=== PATIENT | female | born 1940 | race Caucasian/White ===

== ENCOUNTER 2018-10-09 11:53 | Observation (INO) | payer MEDICARE ==
[2018-10-09 13:08] LABS: ABSOLUTE BASOPHILS # (AUTO) 0.1 10^3/uL (0.0-0.2); ABSOLUTE EOSINOPHILS # (AUTO) 0.1 10^3/uL (0.0-0.6); ABSOLUTE LYMPHOCYTES (AUTO) 1.7 10^3/uL (0.5-4.7); ABSOLUTE MONOCYTES (AUTO) 0.3 10^3/uL (0.1-1.4); ABSOLUTE NEUT (AUTO) 3.4 10^3/uL (1.7-8.2); BASOPHILS % (AUTO) 1.2 % (0-2); EOSINOPHILS % (AUTO) 2.1 % (0-6); HEMATOCRIT 39.9 % (36.0-47.0); HEMOGLOBIN 13.5 g/dL (12.0-15.5); LYMPHOCYTES % (AUTO) 30.1 % (13-45); MEAN CORPUSCULAR HEMOGLOBIN 30.8 pg (27.0-33.4); MEAN CORPUSCULAR VOLUME 91 fl (80-97); MONOCYTES % (AUTO) 5.4 % (3-13); PLATELET COUNT 315 10^3/uL (150-450); RED CELL DISTRIBUTION WIDTH 13.7 % (11.5-14.0); SEGMENTED NEUTROPHILS % (AUTO) 61.2 % (42-78); TOTAL CELLS COUNTED % (AUTO) 100 %; WHITE BLOOD COUNT 5.6 10^3/uL (4.0-10.5)
[2018-10-09 13:18] LABS: ALANINE AMINOTRANSFERASE 25 U/L (9-52); ALBUMIN 4.3 g/dL (3.5-5.0); ALKALINE PHOSPHATASE 96 U/L (38-126); ANION GAP 9 (5-19); ASPARTATE AMINO TRANSFERASE 24 U/L (14-36); BILIRUBIN,DIRECT 0.2 mg/dL (0.0-0.4); BILIRUBIN,TOTAL 0.5 mg/dL (0.2-1.3); BLOOD UREA NITROGEN 17 mg/dL (7-20); CALCIUM 9.3 mg/dL (8.4-10.2); CARBON DIOXIDE 27 mmol/L (22-30); CHLORIDE 104 mmol/L (98-107); GLUCOSE 94 mg/dL (75-110); POTASSIUM 4.2 mmol/L (3.6-5.0); SODIUM 139.5 mmol/L (137-145); TOTAL PROTEIN 6.9 g/dL (6.3-8.2)
--- NOTE | 2018-10-09 13:38 | ER Document Report ---
ED General - General Chief Complaint: High Blood Pressure Stated Complaint: DIZZINESS/NAUSEA Time Seen by Provider: 10/09/18 13:35 TRAVEL OUTSIDE OF THE [place] IN LAST 30 DAYS: No - HPI Notes: 78-year-old female with past medical history of hypertension to the emergency department via EMS with complaints of dizziness that began this morning and elevated blood pressure. She states that for the past week she has been fighting an upper respiratory infection with sinus congestion and chest congestion. She states that she has been taking DayQuil and NyQuil and yesterday she forgot to take her blood pressure medicine. She supposed to be taking losartan 100 mg. She states that this morning she did feel lightheaded and dizzy. She states that she attempted to take her losartan because she thought that her blood pressure was high. However, she became too dizzy and nauseated and vomited the losartan. Medics were called and they found her blood pressure to be 220 systolic. They gave her 0.2 mg of clonidine in route. Patient states that since her blood pressure has gone down from the clonidine she has been feeling less dizzy. She denies weakness in any extremity, difficulty speaking, facial droop, or any other focal neurological deficits. She states that she has never had a stroke. - Related Data Allergies/Adverse Reactions: No Known Allergies Allergy (Verified 10/09/18 12:21) Past Medical History - General Information source: Patient - Social History Smoking Status: Never Smoker Chew tobacco use (# tins/day): No Frequency of alcohol use: None Drug Abuse: None Family History: Reviewed & Not Pertinent Patient has suicidal ideation: No Patient has homicidal ideation: No - Past Medical History Cardiac Medical History: Reports: Hx Hypertension Renal/ Medical History: Denies: Hx Peritoneal Dialysis Review of Systems - Review of Systems Constitutional: denies: Chills, Fever EENT: Nose discharge, Sinus pressure, Vertigo Cardiovascular: Dizziness, Lightheaded. denies: Chest pain, Palpitations Respiratory: Cough. denies: Short of breath Gastrointestinal: Nausea. denies: Abdominal pain, Diarrhea, Vomiting, Constipation Genitourinary: No symptoms reported Musculoskeletal: No symptoms reported Skin: No symptoms reported Hematologic/Lymphatic: No symptoms reported Neurological/Psychological: denies: Confusion, Dementia, Speech impairment, Numbness, Tingling -: Yes All other systems reviewed and negative Physical Exam - Vital signs Vitals: Resp Pulse Ox 12 97 10/09/18 12:03 10/09/18 12:03 Interpretation: Hypertensive - General General appearance: Appears well, Alert - HEENT Head: Normocephalic, Atraumatic Eyes: Normal Pupils: PERRL - Respiratory Respiratory status: No respiratory distress Chest status: Nontender Breath sounds: Normal Chest palpation: Normal - Cardiovascular Rhythm: Regular Heart sounds: Normal auscultation Murmur: No - Abdominal Inspection: Normal Distension: No distension Bowel sounds: Normal Tenderness: Nontender Organomegaly: No organomegaly - Extremities General upper extremity: Normal inspection, Nontender, Normal color, Normal ROM, Normal temperature General lower extremity: Normal inspection, Nontender, Normal color, Normal ROM, Normal temperature, Normal weight bearing. No: Bernadette's sign - Neurological Neuro grossly intact: Yes Cognition: Normal Orientation: AAOx4 Camilo Coma Scale Eye Opening: Spontaneous Camilo Coma Scale Verbal: Oriented Thompson Coma Scale Motor: Obeys Commands Thompson Coma Scale Total: 15 Speech: Normal. No: Dysarthria, Expressive aphasia Cranial nerves: Normal Motor strength normal: LUE, RUE, LLE, RLE Additional motor exam normals: Equal chain splitter, Other - No leg drift. No: Pronator drift Sensory: Normal - Psychological Associated symptoms: Normal affect, Normal mood - Skin Skin Temperature: Warm Skin Moisture: Dry Skin Color: Normal Course - Vital Signs Vital signs: Temp Pulse Resp BP Pulse Ox 97.9 F 14 153/74 H 97 10/09/18 12:21 10/09/18 16:31 10/09/18 16:31 10/09/18 16:31 - Laboratory Result Diagrams: 10/09/18 12:32 10/09/18 12:32 Laboratory results interpreted by me: 10/09/18 13:16 Urine Ketones TRACE H - EKG Interpretation by Ri EKG shows normal: Sinus rhythm Rate: Normal Voltage: Consistant with LVH When compared to previous EKG there are: Previous EKG unavailable - NO STEMI - Transfer of Care Notes: 10/09/18 while awaiting for patient to ambulate in the emergency department and results of urinalysis, patient's blood pressure began to elevate again. Blood pressure reached 208 systolic and she became acutely dizzy once more. She also became nauseated. Rounded on patient and we decided to give her her normal dose of blood pressure medicine losartan 100 mg and to treat her dizziness and nausea with Zofran and Phenergan. Also gave the patient a bolus of 1000 mL of normal saline. Will monitor closely. She has no focal neuro deficits despite her dizziness. She has no dysarthria. No focal extremity weakness. Suspect that the clonidine has worn off and now patient has rebound elevated blood pressure. Rounded on patient: Patient is feeling better after Phenergan, fluids, losartan. Her blood pressure is better controlled now 139 systolic. She would like to try to ambulate. If she does well will discharge home with close outpatient follow-up. 10/09/18 20:31: Patient did not tolerate ambulation well. She became acutely dizzy walking only a few feet and needed assistance. She typically walks on her own without difficulty. Updated Dr. Hi ER attending she agrees with plan to discuss with hospitalist for observation admission. Spoke with Dr. Camilo, hospitalist, we discussed patient's course today in the emergency department and the treatment plan performed here in the emergency department. We have discussed failed ambulation testing and her persistent dizziness. Requested that patient be admitted to [facility] for further monitoring and to ensure that she does well. Dr. Camilo accepts patient to his service. Impression; Accelerated HTN, dizziness, nausea. Patient to be admitted to [facility] status for further monitoring and treatment. Rounded with family and patient and they agree with the plan. they consent to admission. Discharge - Discharge Clinical Impression: Dizziness, Accelerated essential hypertension, Nausea Condition: Good Disposition: ADMITTED OBSERVATION Admitting Provider: Ton (Hospitalist) Unit Admitted: Medical Floor Additional Instructions:
--- NOTE | 2018-10-09 14:23 | RADIOLOGY REPORT (SQ) ---
EXAM DESCRIPTION: CT HEAD WITHOUT COMPLETED DATE/TIME: 10/09/2018 2:04 pm REASON FOR STUDY: dizziness, elevated BP COMPARISON: None. TECHNIQUE: Axial images acquired through the brain without intravenous contrast. Images reviewed wi th bone, brain and subdural windows. Additional sagittal and coronal reconstructions were generated. Images stored on PACS. All CT scanners at this facility use dose modulation, iterative reconstruction, and/or weight based d osing when appropriate to reduce radiation dose to as low as reasonably achievable (ALARA). [facility]: Dose Right [facility]: CareDose [facility]: Dose Right [facility]: Teradose 4D [facility]: JourneyPure RADIATION DOSE: CT Rad equipment meets quality standard of care and radiation dose reduction techniq ues were employed. CTDIvol: 53.2 mGy. DLP: 937 mGy-cm. mGy. LIMITATIONS: None. FINDINGS: VENTRICLES: Normal size and contour. CEREBRUM: No masses. No hemorrhage. No midline shift. No evidence for acute infarction. Normal gra y/white matter differentiation. No areas of low density in the white matter. CEREBELLUM: No masses. No hemorrhage. No alteration of density. No evidence for acute infarction. EXTRAAXIAL SPACES: No fluid collections. No masses. ORBITS AND GLOBE: No intra- or extraconal masses. Normal contour of globe without masses. CALVARIUM: No fracture. PARANASAL SINUSES: No fluid. Mucosal nodule in the floor of the right maxillary sinus. SOFT TISSUES: No mass or hematoma. OTHER: No other significant finding. IMPRESSION: NORMAL BRAIN CT WITHOUT CONTRAST. EVIDENCE OF ACUTE STROKE: NO. COMMENT: Quality ID # [id number]: Final reports with documentation of one or more dose reduction techniques (e.g., Automated exposure control, adjustment of the mA and/or kV according to patient size, use of iterative reconstruction technique) TECHNICAL DOCUMENTATION: JOB ID: [id number] [email or web address]- All Rights Reserved Reading location - IP/workstation name: [email or web address]
--- NOTE | 2018-10-09 14:24 | RADIOLOGY REPORT (SQ) ---
EXAM DESCRIPTION: CHEST 2 VIEWS COMPLETED DATE/TIME: 10/09/2018 1:59 pm REASON FOR STUDY: productive cough for two weeks COMPARISON: None. EXAM PARAMETERS: NUMBER OF VIEWS: two views TECHNIQUE: Digital Frontal and Lateral radiographic views of the chest acquired. RADIATION DOSE: NA LIMITATIONS: none FINDINGS: LUNGS AND PLEURA: No opacities, masses or pneumothorax. No pleural effusion. MEDIASTINUM AND HILAR STRUCTURES: No masses or contour abnormalities. HEART AND VASCULAR STRUCTURES: Heart normal size. No evidence for failure. BONES: No acute findings. HARDWARE: None in the chest. OTHER: No other significant finding. IMPRESSION: NO ACUTE RADIOGRAPHIC FINDING IN THE CHEST. TECHNICAL DOCUMENTATION: JOB ID: [id number] [email or web address]- All Rights Reserved Reading location - IP/workstation name: [email or web address]
[2018-10-09 15:44] LABS: APPEARANCE,URINE CLEAR; BILIRUBIN,URINE NEGATIVE (NEGATIVE); COLOR,URINE STRAW; GLUCOSE, URINE NEGATIVE (NEGATIVE); KETONES,URINE TRACE mg/dL (NEGATIVE); LEUKOCYTE ESTERASE,URINE NEGATIVE (NEGATIVE); NITRITE,URINE NEGATIVE (NEGATIVE); PROTEIN,URINE NEGATIVE (NEGATIVE); UROBILINOGEN,URINE NEGATIVE mg/dL (<2.0)
--- NOTE | 2018-10-09 16:29 | ER Document Report ---
ED General - General Chief Complaint: High Blood Pressure Stated Complaint: DIZZINESS/NAUSEA Time Seen by Provider: 10/09/18 13:35 Primary Care Provider: GALO CHOWDARY PA [Primary Care Provider] - Follow up as needed TRAVEL OUTSIDE OF THE [place] IN LAST 30 DAYS: No - Related Data Allergies/Adverse Reactions: No Known Allergies Allergy (Verified 10/09/18 12:21) Past Medical History - Social History Smoking Status: Never Smoker Chew tobacco use (# tins/day): No Frequency of alcohol use: None Drug Abuse: None Patient has suicidal ideation: No Patient has homicidal ideation: No - Past Medical History Cardiac Medical History: Reports: Hx Hypertension Renal/ Medical History: Denies: Hx Peritoneal Dialysis Physical Exam - Vital signs Vitals: Resp Pulse Ox 12 97 10/09/18 12:03 10/09/18 12:03 Course - Vital Signs Vital signs: Temp Pulse Resp BP Pulse Ox 97.9 F 13 120/72 97 10/09/18 12:21 10/09/18 14:46 10/09/18 14:46 10/09/18 14:46 - Laboratory Result Diagrams: 10/09/18 12:32 10/09/18 12:32 Laboratory results interpreted by me: 10/09/18 13:16 Urine Ketones TRACE H Discharge - Discharge Referrals: GALO CHOWDARY PA [Primary Care Provider] - Follow up as needed
[2018-10-09] MEDS ORDERED: LOSARTAN POTASSIUM 50 MG TABLET PO ONE (16:55)
[2018-10-09] MEDS ORDERED: ONDANSETRON HCL INJ/PF 4 MG/2 ML SDV IV ONE ×2 (16:56→17:52)
[2018-10-09] MEDS ORDERED: NORMAL SALINE 1000 ML 500 ML IV ONE (16:56)
[2018-10-09] MEDS ORDERED: NORMAL SALINE 1000 ML 1,000 ML IV PRN (17:17)
[2018-10-09] MEDS ORDERED: PROMETHAZINE HCL INJ 50 MG/1 ML VIAL IM ONE (17:55)
[2018-10-09] MEDS ORDERED: ACETAMINOPHEN 325 MG TABLET PO ONE (18:16)
[2018-10-09] MEDS ORDERED: PROMETHAZINE HCL INJ 25 MG/1 ML VIAL IM ONE (18:30)
[2018-10-09] MEDS ORDERED: MAG HYDROX/AL HYDROX/SIMETH SUSP 30 ML UDCUP PO PRN (21:52)
[2018-10-09] MEDS ORDERED: ZOLPIDEM TARTRATE 5 MG TABLET PO PRN (21:52)
[2018-10-09] MEDS ORDERED: ONDANSETRON 4 MG TAB.RAPDIS PO PRN (21:52)
[2018-10-09] MEDS ORDERED: ONDANSETRON HCL INJ/PF 4 MG/2 ML SDV IV PRN (21:52)
[2018-10-09] MEDS ORDERED: GUAIFENESIN SYRP 200 MG/10 ML UDC PO PRN (21:56)
[2018-10-09] MEDS ORDERED: ACETAMINOPHEN 325 MG TABLET PO PRN (21:57)
[2018-10-09] MEDS ORDERED: HYDRALAZINE HCL INJ/PF 20 MG/1 ML SDV IV PRN (21:57)
--- NOTE | 2018-10-09 22:12 | EKG REPORT ---
SEVERITY:- ABNORMAL ECG - SINUS RHYTHM LEFT VENTRICULAR HYPERTROPHY : Confirmed by: Marlon Yepez 09-Oct-2018 22:12:08
[2018-10-09] MEDS ORDERED: SCOPOLAMINE HYDROBROMIDE 1.5 MG PATCH.TD72 TD ONE (22:30)
[2018-10-09 22:51] LABS: ALANINE AMINOTRANSFERASE 24 U/L (9-52); ALBUMIN 3.8 g/dL (3.5-5.0); ALKALINE PHOSPHATASE 83 U/L (38-126); ANION GAP 6 (5-19); ASPARTATE AMINO TRANSFERASE 26 U/L (14-36); BILIRUBIN,DIRECT 0.2 mg/dL (0.0-0.4); BILIRUBIN,TOTAL 0.5 mg/dL (0.2-1.3); BLOOD UREA NITROGEN 13 mg/dL (7-20); CALCIUM 8.8 mg/dL (8.4-10.2); CARBON DIOXIDE 27 mmol/L (22-30); CHLORIDE 105 mmol/L (98-107); GLUCOSE 121 mg/dL (75-110); SODIUM 137.7 mmol/L (137-145); TOTAL PROTEIN 6.5 g/dL (6.3-8.2)
[2018-10-09] MEDS: FAMOTIDINE 20 MG TABLET PO SCH (23:02)
[2018-10-09] MEDS: HEPARIN SOD (PORCINE) 5,000 UNIT/ML 1 ML SYRINGE SUBCUT SCH (23:02)
[2018-10-09 23:08] LABS: FREE T3 3.11 pg/mL (2.77-5.27); FREE T4 (FREE THYROXINE) 0.98 ng/dL (0.78-2.19)
[2018-10-09] MEDS ORDERED: SCOPOLAMINE HYDROBROMIDE 1.5 MG PATCH.TD72 ONE (23:18)
--- NOTE | 2018-10-10 04:17 | ADVANCED CARE ---
- Diagnosis (1) Accelerated essential hypertension Diagnosis Current: Yes (2) Dizziness Diagnosis Current: Yes (3) Nausea Diagnosis Current: Yes (4) Medical non-compliance Diagnosis Current: Yes Attendance: Patient and myself Resuscitation Status: Full Code Discussion: Patient has chosen to maintain a full code resuscitation status throughout this hospital course for any cardiac or respiratory arrest. Additionally she desires to name Helga Almonte as her designated surrogate medical decision maker. At the present time she is not interested in discussing a living will, but consideration of same is encouraged. Care Planning Goals: 1. Patient will remain as a full code for her CODE STATUS during this admission. 2. The patient's daughter Helga Almonte will be designated as her surrogate medical decision maker. Document(s) Completed: The following entries will be made into the patient's permanent medical record and medical orders via EMR entry: 1. Patient will remain as a full code for her CODE STATUS during this admission. 2. The patient's daughter Helga Almonte will be designated as her surrogate medical decision maker. Time Spent: 11 minutes
--- NOTE | 2018-10-10 04:18 | PDOC H&P ---
History of Present Illness Admission Date/PCP: 10/09/18 20:43 DYLAN SWEENEY Patient complains of: Dizziness History of Present Illness: MEL ZAZUETA is a 78 year old female who presented to the emergency room with an acute history of dizziness beginning on the morning of admission. Her di zziness was accompanied by lightheadedness with nausea and an episode of vomiting. She also noted her dizziness was associated with an elevated blood pressure. She admits that she had not taken her blood pressure medication (losartan 100 mg) yesterday and tried to take it this morning but vomited shortly after ingesting the pill. She also reports recent use of DayQuil and NyQuil though she has been informed that they are not appropriate to use for persons who have hypertension. She denies prior similar episodes and has not identified any additional aggravating or ameliorating factors for her dizziness. When EMS arrived at her home she was found to have a systolic blood pressure of 220 which was treated with 0.2 mg of clonidine. In the emergency room she was found to have continued hypertension but it gradually resolved with resolution of her dizziness. A CT scan of her head was negative and she had no neurologic deficits on exam. Her blood pressure then rebounded several hours later and she was treated with losartan 100 mg orally and her dizziness improved but she did not feel stable enough to stand up and walk and was subsequently admitted to observation status for further evaluation. Past Medical History Cardiac Medical History: Reports: Hypertension Denies: Atrial Fibrillation, Congestive Heart Failure, Coronary Artery Disease, DVT, Myocardial Infarction, Hyperlipidema, Pulmonary Embolism Pulmonary Medical History: Denies: Asthma, Chronic Obstructive Pulmonary Disease (COPD) EENT Medical History: Denies: Cataracts, Ears - Hearing aids Neurological Medical History: Denies: Hemorrhagic CVA, Ischemic CVA, Multiple Sclerosis, Seizures Endocrine Medical History: Denies: Diabetes Mellitus Type 1, Diabetes Mellitus Type 2, Hyperthyroidism, Hypothyroidism Renal/ Medical History: Denies: Chronic Kidney Disease, Nephrolithiasis Malignancy Medical History: Reports: None GI Medical History: Denies: Cirrhosis, Crohn's Disease, Hepatitis, Peptic Ulcer Disease, Ulcerative Colitis Musculoskeltal Medical History: Denies: Arthritis, Gout Skin Medical History: Denies: Eczema, Psoriasis Psychiatric Medical History: Denies: Alcohol Dependency, Substance Abuse, Tobacco Dependency Traumatic Medical History: Reports: None Hematology: Denies: Anemia, Bleeding Tendencies Infectious Medical History: Reports: None Social History Information Source: Patient Lives with: Alone Smoking Status: Never Smoker Frequency of Alcohol Use: None Hx Recreational Drug Use: No Drugs: None Hx Prescription Drug Abuse: No - Advance Directive Resuscitation Status: Full Code Surrogate healthcare decision maker:: Helga Almonte Family History Family History: Hypertension. denies: CAD, DM, Malignancy Parental Family History Reviewed: Yes Children Family History Reviewed: No Sibling(s) Family History Reviewed.: Yes Medication/Allergy Home Medications: Hydrochlorothiazide [Hydrodiuril 12.5 mg Tablet] 12.5 mg PO DAILY 10/09/18 Losartan Potassium [Cozaar 100 mg Tablet] 100 mg PO DAILY 10/09/18 Allergies/Adverse Reactions: No Known Allergies Allergy (Verified 10/09/18 12:21) Review of Systems Constitutional: ABSENT: chills, fever(s) Eyes: ABSENT: visual disturbances, other - Eye pain Ears: ABSENT: hearing changes, other - Ear pain Nose, Mouth, and Throat: ABSENT: mouth pain, sore throat Cardiovascular: ABSENT: chest pain, palpitations Respiratory: ABSENT: cough, dyspnea Gastrointestinal: PRESENT: as per HPI, nausea, vomiting. ABSENT: abdominal pain, constipation, diarrhea Genitourinary: ABSENT: dysuria, hematuria Musculoskeletal: ABSENT: back pain, joint swelling, muscle weakness Integumentary: ABSENT: pruritus, rash Neurological: PRESENT: as per HPI, dizziness, other - Lightheadedness. ABSENT: confusion, convulsions, focal weakness, memory loss, syncope Psychiatric: ABSENT: anxiety, depression Endocrine: ABSENT: cold intolerance, heat intolerance Hematologic/Lymphatic: ABSENT: easy bleeding, easy bruising Physical Exam Vital Signs: Temp Pulse Resp BP Pulse Ox 97.9 F 14 153/74 H 97 10/09/18 12:21 10/09/18 16:31 10/09/18 16:31 10/09/18 16:31 Intake & Output 10/07/18 10/08/18 10/09/18 23:59 23:59 23:59 Weight 56.9 kg General appearance: PRESENT: no acute distress, cooperative Head exam: PRESENT: atraumatic, normocephalic Eye exam: ABSENT: conjunctival injection, scleral icterus Ear exam: PRESENT: normal external ear exam. ABSENT: bleeding, drainage Mouth exam: PRESENT: dry mucosa, neck supple Neck exam: ABSENT: JVD, thyromegaly, tracheal deviation Respiratory exam: PRESENT: clear to auscultation rony, symmetrical, unlabored Cardiovascular exam: PRESENT: RRR. ABSENT: clicks, gallop, rubs Pulses: PRESENT: normal radial pulses, normal dorsalis pedis pul Vascular exam: PRESENT: normal capillary refill. ABSENT: pallor GI/Abdominal exam: PRESENT: normal bowel sounds, soft Rectal exam: PRESENT: deferred Extremities exam: ABSENT: joint swelling, pedal edema Musculoskeletal exam: PRESENT: full ROM, normal inspection Neurological exam: PRESENT: alert, oriented to person, oriented to place, oriented to time, oriented to situation, CN II-XII grossly intact. ABSENT: ashwini r sensory deficit Psychiatric exam: PRESENT: appropriate affect, normal mood Skin exam: PRESENT: dry, intact, warm. ABSENT: jaundice, rash, urticaria Results Laboratory Results: 10/09/18 12:32 10/09/18 12:32 10/09/18 10/09/18 10/09/18 12:32 12:32 13:16 WBC 5.6 RBC 4.40 Hgb 13.5 Hct 39.9 MCV 91 MCH 30.8 MCHC 34.0 RDW 13.7 Plt Count 315 Seg Neutrophils % 61.2 Lymphocytes % 30.1 Monocytes % 5.4 Eosinophils % 2.1 Basophils % 1.2 Absolute Neutrophils 3.4 Absolute Lymphocytes 1.7 Absolute Monocytes 0.3 Absolute Eosinophils 0.1 Absolute Basophils 0.1 Sodium 139.5 Potassium 4.2 Chloride 104 Carbon Dioxide 27 Anion Gap 9 BUN 17 Creatinine 0.67 Est GFR ( Amer) > 60 Est GFR (Non-Af Amer) > 60 Glucose 94 Calcium 9.3 Total Bilirubin 0.5 AST 24 ALT 25 Alkaline Phosphatase 96 Total Protein 6.9 Albumin 4.3 Urine Color STRAW Urine Appearance CLEAR Urine pH 8.0 Ur Specific [place] 1.010 Urine Protein NEGATIVE Urine Glucose (UA) NEGATIVE Urine Ketones TRACE H Urine Blood NEGATIVE Urine Nitrite NEGATIVE Ur Leukocyte Esterase NEGATIVE Urine WBC (Auto) 0 Urine RBC (Auto) 0 10/09/18 12:32 Troponin I < 0.012 Impressions: Head CT 10/09/18 13:37 IMPRESSION: NORMAL BRAIN CT WITHOUT CONTRAST. EVIDENCE OF ACUTE STROKE: NO. Chest X-Ray 10/09/18 13:45 IMPRESSION: NO ACUTE RADIOGRAPHIC FINDING IN THE CHEST. Assessment and Plan - Diagnosis (1) Accelerated essential hypertension Is this a current diagnosis for this admission?: Yes Plan: Patient be restarted on her usual antihypertensive medication and her blood pressure will be monitored throughout the remainder of her observation. A thyroid profile and a lipid profile will also be obtained as well as a morning CBC and magnesium level and comprehensive metabolic profile, these tests are essential as part of her evaluation. (2) Dizziness Is this a current diagnosis for this admission?: Yes Plan: Patient's dizziness will be treated with a Transderm scopolamine patch and she will be observed for her ability to resume normal activities. (3) Nausea Is this a current diagnosis for this admission?: Yes Plan: Patient's nausea will be controlled with utilization of Transderm scopolamine patch to control dizziness as well as supplemental Zofran given intravenously or sublingually as required. (4) Medical non-compliance Is this a current diagnosis for this admission?: Yes Plan: Patient has been informed about taking medications that contains pseudoephedrine or other stimulant type agents such as NyQuil and DayQuil. She vows not to repeat this mistake in the future. Additionally she understands the necessity to take her medication on a daily basis and again vows not to repeat this mistake in the future. (5) LVH (left ventricular hypertrophy) Is this a current diagnosis for this admission?: Yes Plan: Patient will be continued on her current antihypertensive regiment as it would also provide initial treatment for her left ventricular hypertrophy. Further evaluation of this problem (echocardiogram/cardiology consultation) may be considered on an outpatient basis by her primary care provider. - Time Time Spent with patient: 25-34 minutes Medications reviewed and adjusted accordingly: Yes Anticipated discharge: Home - Inpatient Certification Based on my medical assessment, after consideration of the patient's comorbidities, presenting symptoms, or acuity I expect that the services needed warrant INPATIENT care.: No I certify that my determination is in accordance with my understanding of Medicare's requirements for reasonable and necessary INPATIENT services [42 CFR 412.3e].: No Medical Necessity: Need Close Monitoring Due to Risk of Patient Decompensation, Risk of Complication if Not Cared For in Hospital
[2018-10-10] MEDS: HEPARIN SOD (PORCINE) 5,000 UNIT/ML 1 ML SYRINGE SUBCUT SCH (05:39)
[2018-10-10 05:56] LABS: HEMOGLOBIN 12.3 g/dL (12.0-15.5); MEAN CORPUSCULAR HEMOGLOBIN 30.8 pg (27.0-33.4); MEAN CORPUSCULAR HGB CONC 34.1 g/dL (32.0-36.0); MEAN CORPUSCULAR VOLUME 90 fl (80-97); PLATELET COUNT 270 10^3/uL (150-450); RED BLOOD COUNT 3.98 10^6/uL (3.72-5.28); RED CELL DISTRIBUTION WIDTH 13.8 % (11.5-14.0); WHITE BLOOD COUNT 6.8 10^3/uL (4.0-10.5)
[2018-10-10 06:19] LABS: CHOLESTEROL 192.09 mg/dL (0-200); TRIGLYCERIDES 198 mg/dL (<150)
[2018-10-10 06:30] LABS: DIRECT LDL 92 mg/dL (<100)
[2018-10-10 06:31] LABS: VLDL CHOLESTEROL 39.6 mg/dL (10-31)
--- NOTE | 2018-10-10 08:47 | PDOC DISCHARGE SUMMARY ---
General - Admit/Disc Date/PCP Admission Date/Primary Care Provider: 10/09/18 20:43 DYLAN SWEENEY Discharge Date: 10/10/18 - Discharge Diagnosis (1) Accelerated essential hypertension Is this a current diagnosis for this admission?: Yes Summary: The patient's blood pressure spiked after taking decongestants. This morning her blood pressures are much improved. She will return to her normal regimen of losartan 100 mg daily with hydrochlorothiazide 12.5 mg daily. Follow-up with primary care next week. (2) Dizziness Is this a current diagnosis for this admission?: Yes Summary: Likely due to the acute hypertensive episode. Scopolamine patch was applied. Will discontinue scopolamine. (3) Nausea Is this a current diagnosis for this admission?: Yes Summary: As noted above, Scopolamine was used as Zofran was not effective. Discontinue scopolamine patch. - Additional Information Resuscitation Status: Full Code Discharge Diet: Cardiac Discharge Activity: Activity As Tolerated Home Medications: Hydrochlorothiazide [Hydrodiuril 12.5 mg Tablet] 12.5 mg PO DAILY 10/09/18 Losartan Potassium [Cozaar 100 mg Tablet] 100 mg PO DAILY 10/09/18 History of Present Illness Patient complains of: Dizziness and elevated blood pressure History of Present Illness: MEL ZAZUETA is a 78 year old female with a history of hypertension. She has had sinus congestion for the last week or so. She was coughing to the point where her ribs hurt. To get relief she tried NyQuil and decongestants. This caused her blood pressure to accelerate. She was 230/108 in the emergency department. She was referred to the hospital service for admission. Hospital Course Hospital Course: Patient had a benign hospital course. With no more decongestants her blood pressure has settled down nicely. Upon discharge she will resume her regimen of losartan 100 mg and hydrochlorthiazide 12.5 mg. Her nausea is resolved and therefore she will discontinue the scopolamine patch. Physical Exam Vital Signs: Temp Pulse Resp BP Pulse Ox 97.5 F 52 L 12 150/68 H 52 L 10/09/18 22:57 10/09/18 22:57 10/09/18 22:57 10/09/18 22:57 10/09/18 22:57 Intake & Output 10/09/18 10/10/1819 06:59 06:59 06:59 Intake Total 1320 Output Total 500 Balance 820 Weight 41.8 kg General appearance: PRESENT: no acute distress, cooperative, well-developed Head exam: PRESENT: atraumatic, normocephalic Ear exam: PRESENT: normal external ear exam Mouth exam: PRESENT: dry mucosa, tongue midline Respiratory exam: PRESENT: clear to auscultation rony, symmetrical, unlabored. ABSENT: accessory muscle use, rales, rhonchi, tachypnea, wheezes Cardiovascular exam: PRESENT: RRR, +S1, +S2. ABSENT: diastolic murmur, systolic murmur GI/Abdominal exam: PRESENT: normal bowel sounds, soft. ABSENT: distended, tenderness Rectal exam: PRESENT: deferred Gentrourinary exam: ABSENT: indwelling catheter Extremities exam: ABSENT: calf tenderness, pedal edema Musculoskeletal exam: PRESENT: ambulatory, normal inspection Neurological exam: PRESENT: alert, awake, oriented to person, oriented to place, oriented to time, oriented to situation, CN II-XII grossly intact. ABSENT: motor sensory deficit Psychiatric exam: PRESENT: appropriate affect, normal mood. ABSENT: agitated, anxious Focused psych exam: ABSENT: delusional, restlessness Skin exam: PRESENT: dry, normal color, warm Results Laboratory Results: 10/10/18 05:45 10/09/18 22:20 10/09/18 10/09/18 10/09/18 12:32 12:32 13:16 WBC 5.6 RBC 4.40 Hgb 13.5 Hct 39.9 MCV 91 MCH 30.8 MCHC 34.0 RDW 13.7 Plt Count 315 Seg Neutrophils % 61.2 Lymphocytes % 30.1 Monocytes % 5.4 Eosinophils % 2.1 Basophils % 1.2 Absolute Neutrophils 3.4 Absolute Lymphocytes 1.7 Absolute Monocytes 0.3 Absolute Eosinophils 0.1 Absolute Basophils 0.1 Sodium 139.5 Potassium 4.2 Chloride 104 Carbon Dioxide 27 Anion Gap 9 BUN 17 Creatinine 0.67 Est GFR ( Amer) > 60 Est GFR (Non-Af Amer) > 60 Glucose 94 Calcium 9.3 Magnesium Total Bilirubin 0.5 AST 24 ALT 25 Alkaline Phosphatase 96 Total Protein 6.9 Albumin 4.3 Triglycerides Cholesterol LDL Cholesterol Direct VLDL Cholesterol HDL Cholesterol TSH Free T4 Free T3 pg/mL Urine Color STRAW Urine Appearance CLEAR Urine pH 8.0 Ur Specific [place] 1.010 Urine Protein NEGATIVE Urine Glucose (UA) NEGATIVE Urine Ketones TRACE H Urine Blood NEGATIVE Urine Nitrite NEGATIVE Ur Leukocyte Esterase NEGATIVE Urine WBC (Auto) 0 Urine RBC (Auto) 0 10/09/18 10/09/18 10/10/18 22:20 22:20 05:45 WBC 6.8 RBC 3.98 Hgb 12.3 Hct 36.0 MCV 90 MCH 30.8 MCHC 34.1 RDW 13.8 Plt Count 270 Seg Neutrophils % Lymphocytes % Monocytes % Eosinophils % Basophils % Absolute Neutrophils Absolute Lymphocytes Absolute Monocytes Absolute Eosinophils Absolute Basophils Sodium 137.7 Potassium 4.0 Chloride 105 Carbon Dioxide 27 Anion Gap 6 BUN 13 Creatinine 0.75 Est GFR ( Amer) > 60 Est GFR (Non-Af Amer) > 60 Glucose 121 H Calcium 8.8 Magnesium Total Bilirubin 0.5 AST 26 ALT 24 Alkaline Phosphatase 83 Total Protein 6.5 Albumin 3.8 Triglycerides Cholesterol LDL Cholesterol Direct VLDL Cholesterol HDL Cholesterol TSH Free T4 0.98 Free T3 pg/mL 3.11 Urine Color Urine Appearance Urine pH Ur Specific [place] Urine Protein Urine Glucose (UA) Urine Ketones Urine Blood Urine Nitrite Ur Leukocyte Esterase Urine WBC (Auto) Urine RBC (Auto) 10/10/18 10/10/18 05:45 05:45 WBC RBC Hgb Hct MCV MCH MCHC RDW Plt Count Seg Neutrophils % Lymphocytes % Monocytes % Eosinophils % Basophils % Absolute Neutrophils Absolute Lymphocytes Absolute Monocytes Absolute Eosinophils Absolute Basophils Sodium Potassium Chloride Carbon Dioxide Anion Gap BUN Creatinine Est GFR ( Amer) Est GFR (Non-Af Amer) Glucose Calcium Magnesium 2.0 Total Bilirubin AST ALT Alkaline Phosphatase Total Protein Albumin Triglycerides 198 H Cholesterol 192.09 LDL Cholesterol Direct 92 VLDL Cholesterol 39.6 H HDL Cholesterol 54 TSH 4.36 Free T4 Free T3 pg/mL Urine Color Urine Appearance Urine pH Ur Specific [place] Urine Protein Urine Glucose (UA) Urine Ketones Urine Blood Urine Nitrite Ur Leukocyte Esterase Urine WBC (Auto) Urine RBC (Auto) 10/09/18 12:32 Troponin I < 0.012 Impressions: Head CT 10/09/18 13:37 IMPRESSION: NORMAL BRAIN CT WITHOUT CONTRAST. EVIDENCE OF ACUTE STROKE: NO. Chest X-Ray 10/09/18 13:45 IMPRESSION: NO ACUTE RADIOGRAPHIC FINDING IN THE CHEST. Qualifiers - * PATIENT BEING DISCHARGED WITH ANY OF THE FOLLOWING DIAGNOSIS: No Acute Heart Failure - Is this a Heart Failure Patient?: No Plan Discharge Plan: Resume normal blood pressure medications. Discontinue the scopolamine patch. Discharge instructions were reviewed the patient's daughter as well. We did discuss alternatives in the event of sinus congestion. Her daughter uses Breezy med nasal rinses. The patient should consider that. Also Flonase nasal spray used early can help with congestion. If other medications are needed please review the instructions carefully to avoid medications contraindicated with hypertension. With her hypertension she should also avoid nonsteroidal anti-inflammatory medications. Time Spent: Greater than 30 Minutes
[2018-10-10] MEDS ORDERED: DOCUSATE SODIUM 100 MG CAPSULE PO SCH (10:00)
[2018-10-10] MEDS ORDERED: LOSARTAN POTASSIUM 50 MG TABLET PO SCH (10:00)
[2018-10-10] MEDS ORDERED: HYDROCHLOROTHIAZIDE 12.5 MG TABLET PO SCH (10:00)
[2018-10-10] MEDS: FAMOTIDINE 20 MG TABLET PO SCH (10:51)
[2018-10-10] MEDS ORDERED: ONDANSETRON 4 MG TAB.RAPDIS PO PRN (13:30)
[2018-10-10] MEDS ORDERED: ONDANSETRON HCL INJ/PF 4 MG/2 ML SDV IV PRN (13:30)
[2018-10-10 14:40] VITALS: BP 150/68
== END 2018-10-10 14:53 | disposition home or self-care (01) ==
LOC: ER 11:53 → EH 20:43 → 5 22:50
PROVIDERS: ADMIT Emergency Medicine; ATTEND Emergency Medicine
DX: I10 Essential (primary) hypertension (principal); T48.5X5A Adverse effect of other anti-common-cold drugs, initial encounter; R42 Dizziness and giddiness; R11.0 Nausea; Z91.14 Patient's other noncompliance with medication regimen; Z79.899 Other long term (current) drug therapy
CPT/HCPCS: 93005; 99285; 96372; 96374; 36415 ×2; 84439; 83735; 84443; 85025; 85027; 80053; 81001; 84484; 84481; 80061; 71046; 70450; 93010; 97163; G0378 ×3; A9270 ×6; J1644; J2550; J3490; J2405; J7030